=== PATIENT | female | born 1960 | race Caucasian/White ===

== ENCOUNTER 2024-03-07 08:09 | Inpatient (IN) ==
--- NOTE | 2024-03-03 12:05 | Anesthesiology Consultation ---
Date of Service March 03, 2024 Assessment & Plan (1) Encounter for pre-operative examination: Chart Review Chart Review: Acceptable Risk for Surgery and Patient NOT seen in Pre Admission Testing -Pt seen by PCP and Cardio prior to 02/12/24 lumbar procedure and deemed 'low risk' by both providers. Infectious Disease screening: Per PAT nursing assessment on 03/03/24, No known infectious disease contacts in past 10 days or current infectious disease symptoms. No recent travel outside the country. History Surgery Operation Date: 03/07/24 10:05 Proposed Procedures p L5-S1 Revision Decompression and Fusion - Evangelista Whitney DO Height/Weight Height: 5 ft 6 in Weight: 72.575 kg Allergies Allergy/AdvReac Type Severity Reaction Status Date / Time prednisone Allergy Severe extreme Verified 03/03/24 10:32 hyperactivity Medications Home Medications Medication Instructions Recorded Confirmed Last Taken alprazolam 1 mg tablet 1 mg PO TID PRN Anxiety 01/22/24 03/03/24 02/12/24 06:00 baclofen 10 mg tablet 10 mg PO TID PRN Pain 01/22/24 03/03/24 02/11/24 18:00 fenofibrate nanocrystallized 145 145 mg PO PM 01/22/24 03/03/24 Unknown mg tablet ibuprofen 800 mg tablet 800 mg PO Q8H 01/22/24 03/03/24 Unknown pregabalin 200 mg capsule (Lyrica) 200 mg PO BID 01/22/24 03/03/24 02/11/24 18:00 trazodone 100 mg tablet 200 mg PO HS 01/22/24 03/03/24 02/11/24 18:00 venlafaxine 150 mg 150 mg PO QAM 01/22/24 03/03/24 Unknown capsule,extended release 24 hr (Effexor XR) venlafaxine 75 mg capsule,extended 75 mg PO QAM 01/22/24 03/03/24 02/12/24 06:00 release 24 hr (Effexor XR) oxycodone 5 mg tablet 5 mg PO Q6H PRN pain #20 tabs 02/12/24 03/03/24 Unknown tramadol 50 mg tablet 50 mg PO Q6H PRN pain, moderate 02/12/24 03/03/24 Unknown #20 tabs atorvastatin 40 mg tablet (Lipitor) 40 mg PO QPM 03/03/24 03/03/24 Unknown cholecalciferol (vitamin D3) 125 125 mcg PO DAILY 03/03/24 03/03/24 Unknown mcg (5,000 unit) tablet (Vitamin D3) Past Medical History Medical History Anxiety Fibromyalgia Hyperlipidemia LBBB (left bundle branch block) Chronic finding dating back to at least 2020 "Chronic finding, no intervention" per cardio records Muscle spasm Neuropathy RLE Sleep apnea has cpap but is non-compliant Past Family History Family History Mother Colon cancer Father Diabetes Other No family history of adverse response to anesthesia Past Surgical History Surgical History (Updated 03/03/24 @ 12:04 by Anabel Nolasco PA-C) H/O laminectomy (02/12/24) Laminotomy L5-S1 on the right with excision of herniated fragment: GA: Beard#2, MAC#3, ETT#7.0 HiLo Oral, Gr View 3 (atraumatic x 2 attempts) History of breast augmentation History of cardiac cath 2014- no stents History of colonoscopy History of hysterectomy History of laparoscopy Social History Smoking Status: Former smoker Do You Dip or Chew Tobacco: No Smoking End Date: 2012 Hx Alcohol Use: No substance use type: does not use Lab Results Anesthesia Preop Results Results Anesthesia Widget: WBC 3.22 K/ul (4.8-10.8) L 01/28/24 Hgb 11.2 g/dl (12.0-16.0) L 01/28/24 Hct 33.3 % (37.0-47.0) L 01/28/24 Plt 291 K/uL (130-400) 01/28/24 Na 129 mmol/L (136-145) L 01/28/24 K 4.3 mmol/L (3.5-5.1) 01/28/24 Cl 97 mmol/L (98-107) L 01/28/24 CO2 28 mmol/L (21-32) 01/28/24 BUN 10 mg/dl (6-23) 01/28/24 Creat 0.67 mg/dl (0.6-1.2) 01/28/24 Glucose Level 88 mg/dl (70-99(Fasting)) 01/28/24 PT 11.1 Seconds (9.0-12.0) 01/28/24 PTT 25 Seconds (21-31) 01/28/24 INR 1.0 (0.9-1.1) 01/28/24 Urine Color Yellow 01/28/24 Urine Appearance Clear (Clear) 01/28/24 Urine pH 6.0 (4.5-7.5) 01/28/24 Urine Specific [place] 1.010 (1.000-1.030) 01/28/24 Urine Protein Negative (Negative) 01/28/24 Urine Glucose (UA) Negative (Negative) 01/28/24 Urine Ketones Negative (Negative) 01/28/24 Urine Blood Negative (Negative) 01/28/24 Urine Nitrite Negative (Negative) 01/28/24 Urine Bilirubin Negative (Negative) 01/28/24 Urine Urobilinogen Negative (Negative) 01/28/24 Urine Leukocyte Esterase Negative (Negative) 01/28/24 Blood Type A Positive 01/28/24 Antibody Screen NEGATIVE 01/28/24 Testing Laboratory Results 02/04/24: SODIUM: 134 (L) POTASSIUM: 4.0 CHLORIDE: 102 CO2: 22 BUN: 9 CREATININE: 0.82 GLUCOSE: 90 Electrocardiogram Date: 02/01/24 Findings: + NSR @ (84bpm) LBBB Chest X-Ray Date: 01/28/24 Findings: + NAD
[~2024-03-07 08:09] MED LIST: DEXAMETHASONE SOD INJ 4 MG/ML VIAL ONE; GLYCOPYRROLATE 0.2 MG/ML VIAL ONE; LIDOCAINE 2% 2 ML VIAL/AMP(20MG/ML) INFIL ONE; MIDAZOLAM HCL 1 MG/ML 2ML VIAL ONE; ONDANSETRON INJ 2 MG/ML 2 ML VIAL ONE; PROPOFOL IV EMULSION 10 MG/ML 20 ML VIAL IV ONE; ROCURONIUM BROMIDE 10 MG/ML 5 ML VIAL IV ONE; SUGAMMADEX SODIUM 200 MG/2 ML VIAL IV ONE; fentaNYL citrate PF 100 MCG/2 ML VIAL ONE
[2024-03-07] MEDS: GABAPENTIN 600 MG DOSE PO SCH (08:57)
[2024-03-07] MEDS: LR 60ML/HR IV SCH (08:57)
[2024-03-07] MEDS: ACETAMINOPHEN 500 MG TAB PO SCH (08:57)
[2024-03-07] MEDS: CeleBREX 200 MG CAP PO SCH (08:57)
[2024-03-07] MEDS: LR 15ML/HR IV SCH (09:09)
--- NOTE | 2024-03-07 09:51 | History & Physical Bridge Note ---
Date of Service March 07, 2024 History & Physical Bridge Note I have examined the patient, reviewed the History & Physical and in the interval since the performance of the History & Physical I have noted the following changes of clinical significance: no changes noted
--- NOTE | 2024-03-07 09:52 | History & Physical Report ---
Date of Service March 07, 2024 Assessment & Plan (1) Lumbar disc herniation with radiculopathy: Plan: L5-S1 revision decompression and fusion History of Present Illness Chief Complaint: Back and right leg pain Primary Care Provider: ALEX Nicholson This is a 63-year-old female presents with recurrent disc herniation continued right leg pain. Subsequently she is here for revision surgery. Allergies Allergy/AdvReac Type Severity Reaction Status Date / Time prednisone Allergy Severe extreme Verified 03/07/24 08:39 hyperactivity Home Medications Medication Instructions Recorded Confirmed Type alprazolam 1 mg tablet 1 mg PO TID PRN Anxiety 01/22/24 03/07/24 History baclofen 10 mg tablet 10 mg PO TID PRN Pain 01/22/24 03/07/24 History fenofibrate nanocrystallized 145 145 mg PO PM 01/22/24 03/07/24 History mg tablet ibuprofen 800 mg tablet 800 mg PO Q8H 01/22/24 03/07/24 History pregabalin 200 mg capsule (Lyrica) 200 mg PO BID 01/22/24 03/07/24 History trazodone 100 mg tablet 200 mg PO HS 01/22/24 03/07/24 History venlafaxine 150 mg 150 mg PO QAM 01/22/24 03/07/24 History capsule,extended release 24 hr (Effexor XR) venlafaxine 75 mg capsule,extended 75 mg PO QAM 01/22/24 03/07/24 History release 24 hr (Effexor XR) oxycodone 5 mg tablet 5 mg PO Q6H PRN pain #20 tabs 02/12/24 03/07/24 Rx tramadol 50 mg tablet 50 mg PO Q6H PRN pain, moderate 02/12/24 03/07/24 Rx #20 tabs atorvastatin 40 mg tablet (Lipitor) 40 mg PO QPM 03/03/24 03/07/24 History cholecalciferol (vitamin D3) 125 125 mcg PO DAILY 03/03/24 03/07/24 History mcg (5,000 unit) tablet (Vitamin D3) sennosides 8.6 mg-docusate sodium 2 tab PO BID PRN Constipation 03/07/24 03/07/24 History 50 mg tablet Past Med/Surg History Problem List Lumbar disc herniation with radiculopathy Medical History LBBB (left bundle branch block) Chronic finding dating back to at least 2020 "Chronic finding, no intervention" per cardio records Fibromyalgia Neuropathy RLE Sleep apnea has cpap but is non-compliant Hyperlipidemia Muscle spasm Anxiety Surgical History H/O laminectomy (02/12/24) Laminotomy L5-S1 on the right with excision of herniated fragment: GA: Beard#2, MAC#3, ETT#7.0 HiLo Oral, Gr View 3 (atraumatic x 2 attempts) History of hysterectomy History of breast augmentation History of laparoscopy History of colonoscopy History of cardiac cath 2014- no stents Family History Mother Colon cancer Father Diabetes Other No family history of adverse response to anesthesia Social History Smoking Status: Former smoker Tobacco Type: Cigarettes Smoking End Date: 2012; Second Hand Exposure: No; Do You Dip or Chew Tobacco: No; Hx Alcohol Use: No Preferred Language: Barbadian Communication Ability: Effective Acquisition Consultant Required: No Beliefs That Will Affect Care: None Current Living Situation: Alone Feels Safe at Home: Yes Safety Concerns: Feels Safe At This Time Assistive Devices: Cane and CPAP Assistive Devices Comment: pt states does not use cpap machine Physical Exam Physical Exam: Patient is alert and oriented Heart regular rhythm Lungs clear Results & Data Results & Data Vital Signs (Past 12 Hours) Vital Signs Temp Pulse Resp BP Pulse Ox O2 Del Method 03/07/24 08:48 36.8 C 71 16 141/70 H 97 Room Air
[2024-03-07] MEDS ORDERED: PROMETHAZINE HCL 6.25 MG in SODIUM CHLORIDE 0.9% 50 ML IV PRN (10:20)
[2024-03-07] MEDS ORDERED: ePHEDrine sulfate 50 MG/ML AMP IV PRN (10:20)
[2024-03-07] MEDS ORDERED: ATROPINE SULFATE 0.1 MG/ML 10ML SYR IV PRN (10:20)
[2024-03-07] MEDS ORDERED: ONDANSETRON INJ 2 MG/ML 2 ML VIAL IV PRN ×2 (10:20→14:19)
[2024-03-07] MEDS: ceFAZolin 2000MG 2,000 MG/15 ML SYR IV SCH (10:22)
[2024-03-07] MEDS ORDERED: fentaNYL citrate PF 100 MCG/2 ML VIAL ONE (11:18)
[2024-03-07] MEDS: ceFAZolin 330 MG/ML 1 GM VIAL ONE (11:43)
[2024-03-07] MEDS: BUPIVACAINE/EPINEPHRINE 0.25% 1:200,000 30 ML VIAL ONE (11:43)
[2024-03-07] MEDS: FLOSEAL HEMOSTATIC MATRIX 10ML TOP ONE (11:44)
--- NOTE | 2024-03-07 11:54 | Operative Report ---
Post Operative Report Pre & Post Diagnosis Operation Date: 03/07/24 10:05 Pre-Op Diagnosis: Recurrent lumbar disc herniation L5-S1 Post-Op Diagnosis: Same I identified the patient and participated in the time-out.: Yes Procedure Operation Date: 03/07/24 10:05 Actual Procedures #1 revision decompression bilateral medial facetectomies and foraminotomies with excision of herniated fragments of disc at L5-S1. #2 posterior spinal fusion L5-S1. #3 placement posterior instrumentation L5-S1. #4 interbody fusion L5- S1. #5 placement of Spira 13 x 26 mm x 2 at L5-S1. #6 placement locally harvested morselized autograft posterior gutters. #7 placement infuse collagen sponge, with Koros bone graft in the posterior lateral gutters and os design bone graft in the interbody space. #8 application of versa wrap over the exposed dura. Surgeon Evangelista Whitney, Receiving Room Clerk Tracey Arroyo Estimated Blood Loss 100 Findings Consistent with Post-Op Diagnosis Specimens None Indications This is a 63-year-old female presents with above-mentioned diagnosis after failing course of nonoperative care she is here for surgical invention. Description of Procedure Patient was met with identified informed consent obtained. Patient was then taken to the operative suite underwent intubation placed in a prone position on the Masood table atop the Jad frame. All bony promises well-padded eyes inspected to ensure no external pressure placed upon the. This point the lumbar spine was prepped and draped in normal sterile fashion. Sharp dissection with the assistance of Bovie cautery was formed down to and exposing the remaining lamina transverse processes of L5 and the sacral ala bilaterally. From caudal to cephalad fashion revision complete laminectomy of L5 was performed including bilateral medial facetectomies and foraminotomies. This included addressing the fragments of free disc material under the S1 nerve root on the right. Pedicle screws were then placed in the 5 S1 levels bilaterally with assistance of fluoroscopy and the properly sized stuart placed. By way of transforaminal approach on the right discectomy of L5-S1 was performed endplates guarded to subcortical bleeding bone and a 13 x 26 mm spiral cage filled with os design zyme bone graft tapped in position. Then proceeded to the left transforaminal region of L5-S1. Again discectomy performed endplates guided to subcortical main bone and a second 13 x 26 mm Spira cage filled with os design bone graft ta pped in position. The rods then compressed locked into final position bilaterally. The transverse processes of L5 and the sacral ala burred to subcortical bleeding bone. Infuse collagen sponge combined with Koros and local autograft placed in the posterior lateral gutters. 15 round ADDI drain inserted. Versa wrap placed over the exposed dura. The incision was then closed with 1 Vicryl fascia 2-0 Vicryl subcutaneously and 4 Monocryl for final skin closure. Steri-Strips sterile dressing placed. Patient waken taken PACU in stable condition. Please note spinal cord monitoring was utilized without the procedure no changes noted. Barbara Arroyo was present at the entire procedure involved the patient positioning complex portion of the surgery and final skin closure. I attest to the content of the Intraoperative Record and any orders documented therein. Any exceptions are noted below.
--- NOTE | 2024-03-07 11:59 | Fluoroscopy Report ---
FL lumbar spine 2-3V CLINICAL HISTORY: L5-S1 REVISION DECOMP/FUSION COMPARISON STUDY: Lumbar spine fluoroscopic images February 12, 2024. FLUOROSCOPY TIME: 19 seconds. Ka, r: 10.80 mGy FLUOROSCOPIC IMAGES: 2 FINDINGS: Fluoroscopy was provided during the L5-S1 discectomy, decompression and fusion. Hardware is intact. IMPRESSION: Fluoroscopy provided during L5-S1 discectomy, decompression and fusion. ACT 112: Negative or not required by law. Electronically signed by: Espinoza Sibley M.D. 03/07/2024 11:58 AM
[2024-03-07] MEDS: fentaNYL citrate PF 100 MCG/2 ML VIAL IV PRN (12:10)
[2024-03-07] MEDS: HYDROmorphone INJ 2 MG/ML SYR/VIAL IV PRN (12:58)
--- NOTE | 2024-03-07 13:49 | Anesthesiology Progress Note ---
Date of Service March 07, 2024 Anesthesia Post Procedure Vital Signs Vital Signs: Temp Pulse Pulse Resp BP Pulse Ox O2 Del Method 03/07/24 13:45 78 8 L 125/59 L 97 Nasal Cannula 03/07/24 13:35 77 16 121/57 L 97 Nasal Cannula 03/07/24 13:20 74 13 123/69 95 Nasal Cannula 03/07/24 13:10 81 12 133/74 95 Nasal Cannula 03/07/24 13:00 78 12 125/65 97 Nasal Cannula 03/07/24 12:50 75 15 122/63 96 Room Air 03/07/24 12:40 71 16 113/70 93 Room Air 03/07/24 12:30 73 12 125/66 94 Room Air 03/07/24 12:20 68 13 129/60 94 Room Air 03/07/24 12:10 36.3 C L 82 12 122/70 92 Room Air 03/07/24 08:48 36.8 C 71 16 141/70 H 97 Room Air O2 Flow Rate 03/07/24 13:45 2 03/07/24 13:35 2 03/07/24 13:20 2 03/07/24 13:10 2 03/07/24 13:00 2 03/07/24 12:50 03/07/24 12:40 03/07/24 12:30 03/07/24 12:20 03/07/24 12:10 03/07/24 08:48 Pain Intensity Right Back: Pain Intensity: 6 Transfer of Care Handoff Completed per policy Notes Mental Status: alert / awake / arousable and participated in evaluation Patient Amnestic to Procedure: Yes Nausea / Vomiting: adequately controlled Pain: adequately controlled Airway Patency, RR, SpO2: stable & adequate BP & HR: stable & adequate Hydration State: stable & adequate Anesthetic Complications: no major complications apparent
[2024-03-07] MEDS ORDERED: hydrOXYzine HCl 25 MG TAB PO PRN (14:19)
[2024-03-07] MEDS ORDERED: PROMETHAZINE 12.5 MG/50.5 ML BAG IV PRN (14:19)
[2024-03-07] MEDS ORDERED: ACETAMINOPHEN 500 MG TAB PO PRN (14:19)
[2024-03-07] MEDS ORDERED: ACETAMINOPHEN 1,000 MG/100 ML VIAL IV PRN (14:19)
[2024-03-07] MEDS ORDERED: NALOXONE HCL 0.4 MG/1 ML VIAL/CARP IV PRN (14:19)
[2024-03-07] MEDS ORDERED: SOD PHOSPHATE/SOD BIPHOSPHATE ENEMA 132 ML BTL PR PRN (14:19)
[2024-03-07] MEDS ORDERED: ONDANSETRON 4 MG OD TAB PO PRN (14:19)
[2024-03-07] MEDS ORDERED: DO NOT ADMINISTER PNEUMOCOCCAL VACCINE PRN (14:19)
[2024-03-07] MEDS ORDERED: ALUMINUM/MAGNESIUM SUSP 30 ML UDC PO PRN (14:19)
[2024-03-07] MEDS ORDERED: METOCLOPRAMIDE HCL INJ 5 MG/ML 2 ML VIAL IV PRN (14:19)
[2024-03-07] MEDS ORDERED: LORazepam 0.5 MG TAB PO PRN (14:19)
[2024-03-07] MEDS ORDERED: DO NOT ADMINISTER FLU VACCINE PRN (14:19)
[2024-03-07] MEDS ORDERED: FAMOTIDINE 20 MG TAB PO PRN (14:19)
[2024-03-07] MEDS ORDERED: LORazepam 2 MG/1 ML VIAL IV PRN (14:19)
[2024-03-07] MEDS ORDERED: traMADol HCL 50 MG TABLET PO PRN (14:19)
[2024-03-07] MEDS ORDERED: diphenhydrAMINE Capsule 25 MG CAP PO PRN (14:19)
[2024-03-07] MEDS ORDERED: bisacodyL 10 MG SUPP PR PRN (14:19)
[2024-03-07] MEDS ORDERED: MAGNESIUM HYDROXIDE SUSP 30 ML UDC PO PRN (14:19)
--- NOTE | 2024-03-07 14:33 | Hospitalist Consultation ---
Date of Consultation March 07, 2024 Assessment & Plan (1) Lumbar disc herniation with radiculopathy: (2) S/P lumbar spine operation: Plan Yasemin Cisneros is a 63y/o F with PMHx significant for fibromyalgia, COLE intolerant to CPAP, HLD, anxiety, neuropathy and LBBB [facility] after undergoing L5-S1 decompression and fusion revision performed by Dr. Whitney on 03/07/24. Lumbar Disc Herniation with Radiculopathy S/P Lumbar Spine Operation: POD #0 s/p L5-S1 decompression and fusion revision with Dr. Whitney. EBL: 100mL & Pre-Op Hgb: 11.2 [01/28/24] Per ortho for pain control, wound care, anticoagulation and activities. Continue incentive spirometry, PT/OT when appropriate as per ortho team. Monitor H/H for acute blood loss anemia and transfuse blood products PRN. Other Chronic Medical Conditions: HLD, anxiety, neuropathy --> Can continue home meds for these specific conditions. DVT Prophylaxis: SCDs/TEDs per primary care team. Code Status: FULL CODE PCP: ALEX Pizarro Disposition: Admitted in Med/Surg - discharge planning as per primary service. Thank you for this consultation. We will follow the patient with you during their hospital stay. You can reach a [facility] of [facility] via [employer]. Patient seen in collaboration with Dr. Gonzalez. Please see addendum. I spent a total of 40 minutes coordinating, documenting, and providing care for this patient excluding time spent in the performance of separately billed services. This included personally reviewing all current laboratories and imaging studies, medical reconciliation, outpatient chart review and discussion with specialists. This chart was completed in part utilizing Speech Voice Recognition Software. Grammatical errors, random word insertions, pronoun errors, and incomplete sentences are an occasional consequence of this system due to software limitations, ambient noise, and hardware issues. Any formal questions or concerns about the content, text, or information contained within the body of this dictation should be directly addressed to the provider for clarification. Supervising Physician Co-Signing Physician Notes Pt seen and examined at the bedside with Mikey Erwin PA-C. A total of 30 minutes spent in care coordination for this patient. I agree with the TYREE assessment and plan. Thank you Dr. Whitney for the consult History of Present Illness Reason for Consultation: Post-Operative Medical Management Requesting Physician: Evangelista Whitney DO Attending Physician: Evangelista Whitney DO History of Present Illness Yasemin Cisneros is a 63y/o F with PMHx significant for fibromyalgia, COLE intolerant to CPAP, HLD, anxiety and LBBB who [facility] medical management after undergoing L5-S1 decompression and fusion revision performed by Dr. Whitney on 03/07/24. History obtained from patient and associated chart review. Patient seen at bedside with Dr. Gonzalez. Patient reports some tingling/burning sensation at the surgical site. She is requesting an ice pack to place on this area. Denies any SOB or chest pain. She has not yet been out of bed post-operatively. No Hyman catheter in place. ADDI drain x 1 is intact and draining serosanguineous output. Mentions she feels comfortable otherwise. She is saturating well in the upper 90s on 2L O2 via NC. Has no other complaints or concerns at this time. She does not smoke nor drink alcohol. Allergies Allergy/AdvReac Type Severity Reaction Status Date / Time prednisone Allergy Severe extreme Verified 03/07/24 08:39 hyperactivity Home Medications Medication Instructions Recorded Confirmed Type alprazolam 1 mg tablet 1 mg PO TID PRN Anxiety 01/22/24 03/07/24 History baclofen 10 mg tablet 10 mg PO TID PRN Pain 01/22/24 03/07/24 History fenofibrate nanocrystallized 145 145 mg PO PM 01/22/24 03/07/24 History mg tablet ibuprofen 800 mg tablet 800 mg PO Q8H 01/22/24 03/07/24 History pregabalin 200 mg capsule (Lyrica) 200 mg PO BID 01/22/24 03/07/24 History trazodone 100 mg tablet 200 mg PO HS 01/22/24 03/07/24 History venlafaxine 150 mg 150 mg PO QAM 01/22/24 03/07/24 History capsule,extended release 24 hr (Effexor XR) venlafaxine 75 mg capsule,extended 75 mg PO QAM 01/22/24 03/07/24 History release 24 hr (Effexor XR) oxycodone 5 mg tablet 5 mg PO Q6H PRN pain #20 tabs 02/12/24 03/07/24 Rx tramadol 50 mg tablet 50 mg PO Q6H PRN pain, moderate 02/12/24 03/07/24 Rx #20 tabs atorvastatin 40 mg tablet (Lipitor) 40 mg PO QPM 03/03/24 03/07/24 History cholecalciferol (vitamin D3) 125 125 mcg PO DAILY 03/03/24 03/07/24 History mcg (5,000 unit) tablet (Vitamin D3) oxycodone 5 mg tablet 5 mg PO Q6H PRN pain #30 tabs 03/07/24 Rx sennosides 8.6 mg-docusate sodium 2 tab PO BID PRN Constipation 03/07/24 03/07/24 History 50 mg tablet tramadol 50 mg tablet 50 mg PO Q6H PRN pain, moderate 03/07/24 Rx #30 tabs Patient History Medical History LBBB (left bundle branch block) Chronic finding dating back to at least 2020 "Chronic finding, no intervention" per cardio records Fibromyalgia Neuropathy RLE Sleep apnea has cpap but is non-compliant Hyperlipidemia Muscle spasm Anxiety Surgical History H/O laminectomy (02/12/24) Laminotomy L5-S1 on the right with excision of herniated fragment: GA: Beard#2, MAC#3, ETT#7.0 HiLo Oral, Gr View 3 (atraumatic x 2 attempts) History of hysterectomy History of breast augmentation History of laparoscopy History of colonoscopy History of cardiac cath 2014- no stents Family History Mother Colon cancer Father Diabetes Other No family history of adverse response to anesthesia Social History Smoking Status: Former smoker Tobacco Type: Cigarettes Smoking End Date: 2012; Second Hand Exposure: No; Do You Dip or Chew Tobacco: No; Hx Alcohol Use: No Preferred Language: [place]orese Communication Ability: Effective Traffic Line Painter Required: No Beliefs That Will Affect Care: None Current Living Situation: Alone Feels Safe at Home: Yes Safety Concerns: Feels Safe At This Time Assistive Devices: Cane and CPAP Assistive Devices Comment: pt states does not use cpap machine Review of Systems Review of Systems: At least ten systems reviewed and negative,except as noted in the HPI. Physical Exam Physical Exam: Please refer to Dr. Gonzalez's addendum for physical examination findings. Constitutional: General- adult female seen resting in bed. Just up from the PACU. Having some incisional pain, O2 in place Head- atraumatic Eyes- PERRL, EOMI, anicteric ENT- oropharynx clear Neck- no JVD, Lungs- clear to auscultation and percussion Heart- regular rhythm; no murmur, no gallop, no rub appreciated Abdomen- normal bowel sounds, soft, nontender, Extremities- no pretibial edema, no calf tenderness; peripheral pulses intact Neuro- alert, oriented x 3; PERRL, EOMI; no facial palsy; no dysarthria; good sensation in toes Skin- warm & dry ADDI drain intact Results & Data Results & Data Vital Signs (Past 12 Hours) Vital Signs Temp Pulse Pulse Resp BP Pulse Ox O2 Del Method 03/07/24 13:55 78 12 123/62 98 Nasal Cannula 03/07/24 13:45 78 8 L 125/59 L 97 Nasal Cannula 03/07/24 13:35 77 16 121/57 L 97 Nasal Cannula 03/07/24 13:20 74 13 123/69 95 Nasal Cannula 03/07/24 13:10 81 12 133/74 95 Nasal Cannula 03/07/24 13:00 78 12 125/65 97 Nasal Cannula 03/07/24 12:50 75 15 122/63 96 Room Air 03/07/24 12:40 71 16 113/70 93 Room Air 03/07/24 12:30 73 12 125/66 94 Room Air 03/07/24 12:20 68 13 129/60 94 Room Air 03/07/24 12:10 36.3 C L 82 12 122/70 92 Room Air 03/07/24 08:48 36.8 C 71 16 141/70 H 97 Room Air O2 Flow Rate 03/07/24 13:55 2 03/07/24 13:45 2 03/07/24 13:35 2 03/07/24 13:20 2 03/07/24 13:10 2 03/07/24 13:00 2 03/07/24 12:50 03/07/24 12:40 03/07/24 12:30 03/07/24 12:20 03/07/24 12:10 03/07/24 08:48 Diagnostic Findings Lumbar Spine X-Ray 03/07/24 00:00 FL lumbar spine 2-3V CLINICAL HISTORY: L5-S1 REVISION DECOMP/FUSION COMPARISON STUDY: Lumbar spine fluoroscopic images February 12, 2024. FLUOROSCOPY TIME: 19 seconds. Ka, r: 10.80 mGy FLUOROSCOPIC IMAGES: 2 FINDINGS: Fluoroscopy was provided during the L5-S1 discectomy, decompression and fusion. Hardware is intact. IMPRESSION: Fluoroscopy provided during L5-S1 discectomy, decompression and fusion. ACT 112: Negative or not required by law. Electronically signed by: Espinoza Sibley M.D. 03/07/2024 11:58 AM Medications Administered Celecoxib (Celebrex 200 Mg Cap) 200 mg PO PREOP ARIN Stop: 03/07/24 18:00 Last Admin: 03/07/24 08:57 Dose: 200 mg Documented By: ALIZA Gabapentin (Gabapentin 600 Mg Dose) 600 mg PO PREOP ARIN Stop: 03/07/24 18:00 Last Admin: 03/07/24 08:57 Dose: 600 mg Documented By: ALIZA Lactated Ringer's (Lr) 1,000 mls @ 60 mls/hr IV .[id number] ARIN Stop: 03/07/24 22:39 Last Admin: 03/07/24 08:57 Dose: Not Given Documented By: ALIZA Cefazolin Sodium (Ancef 2000mg) 2,000 mg in 15 mls @ 3.75 mls/min IV PREOP ARIN; Protocol Stop: 03/07/24 18:00 Last Admin: 03/07/24 10:22 Dose: 3.75 mls/min Documented By: [id number] Lactated Ringer's (Lr) 1,000 mls @ 15 mls/hr IV .Q24H ARIN Stop: 03/08/24 05:59 Last Infusion: 03/07/24 10:20 Dose: Infused Documented By: Admin: 03/07/24 09:09 Dose: 15 mls/hr Documented By: ALIZA Lactated Ringer's (Lr) 1,000 mls @ 100 mls/hr IV .Q10H ARIN Stop: 04/06/24 14:18 Last Admin: 03/07/24 14:44 Dose: 100 mls/hr Documented By: ELISABET Oxycodone HCl (Oxycodone Hcl Ir 5 Mg Tab (Immediate Release)) 5 - 10 mg PO Q4H PRN PRN Reason: Pain & Pre PT Stop: 03/21/24 14:18 Last Admin: 03/07/24 14:53 Dose: 10 mg Documented By: ELISABET Discontinued Medications Acetaminophen (Acetaminophen 500 Mg Tab) 1,000 mg PO PREOP ARIN Stop: 03/07/24 18:00 Last Admin: 03/07/24 08:57 Dose: 1,000 mg Documented By: ALIZA Bupivacaine HCl/Epinephrine Bitart (Bupivacaine/Epinephrine 0.25% 1:200,000 30 Ml Vial) Confirm Administered Dose 30 ml .ROUTE .STK-MED ONE Stop: 03/07/24 10:09 Last Admin: 03/07/24 11:43 Dose: 15 ml Documented By: MICKIE Cefazolin Sodium (Cefazolin 330 Mg/Ml 1 Gm Vial) Confirm Administered Dose 990 mg .ROUTE .STK-MED ONE Stop: 03/07/24 10:09 Last Admin: 03/07/24 11:43 Dose: 990 mg Documented By: MICKIE Fentanyl Citrate (Fentanyl Citrate Pf 100 Mcg/2 Ml Vial) 50 mcg IV Q5M PRN PRN Reason: PACU Use Only-Pain Stop: 03/07/24 18:20 Last Admin: 03/07/24 12:53 Dose: 50 mcg Documented By: Admin: 03/07/24 12:35 Dose: 50 mcg Documented By: Admin: 03/07/24 12:15 Dose: 50 mcg Documented By: Admin: 03/07/24 12:10 Dose: 50 mcg Documented By: DOMINICK Hydromorphone HCl (Hydromorphone Inj 2 Mg/Ml Syr/Vial) 0.5 mg IV Q5M PRN PRN Reason: PACU Use Only-Pain Stop: 03/07/24 18:20 Last Admin: 03/07/24 13:35 Dose: 0.5 mg Documented By: Admin: 03/07/24 13:08 Dose: 0.5 mg Documented By: Admin: 03/07/24 13:03 Dose: 0.5 mg Documented By: Admin: 03/07/24 12:58 Dose: 0.5 mg Documented By: CLAYTONW Miscellaneous ( Floseal Hemostatic Matrix 10ml) 10 ml TOP ONCE ONE Stop: 03/07/24 11:45 Last Admin: 03/07/24 11:44 Dose: 14 ml Documented By: MICKIE
[2024-03-07] MEDS: LACTATED RINGER'S 1,000 ML IV SCH (14:44)
[2024-03-07] MEDS: oxyCODONE HCL IR 5 MG TAB (IMMEDIATE RELEASE) PO PRN (14:53)
[2024-03-07] MEDS: ALPRAZolam 0.5 MG TABLET PO PRN (16:50)
[2024-03-07] MEDS: ceFAZolin 1000MG 1,000 MG/7.5 ML SYR IV SCH (17:08)
[2024-03-07] MEDS: traZODone HCL 100 MG TAB PO SCH (18:34)
[2024-03-07] MEDS: PREGABALIN 100 MG CAP PO SCH (20:23)
[2024-03-07] MEDS: FENOFIBRATE NANOCRYSTALLIZED 145 MG TABLET PO SCH (20:23)
[2024-03-07] MEDS: ATORVASTATIN 40 MG TAB PO SCH (20:23)
[2024-03-07] MEDS: DOCUSATE SODIUM/SENNA 50/8.6MG TAB PO SCH (20:23)
[2024-03-08] MEDS: HYDROmorphone INJ 0.5 MG/0.5 ML SYR IV PRN (05:01)
[2024-03-08] MEDS: POLYETHYLENE (MIRALAX) 17 GM PACK PO SCH (06:28)
[2024-03-08 06:37] LABS: Basophils # (auto) 0.01 K/uL (0.00-0.20); Basophils % (auto) 0.2 %; Eosinophils # (auto) 0.32 K/uL (0.00-0.50); Eosinophils % (auto) 6.6 %; Hematocrit (blood only) 26.7 % (37.0-47.0); Hemoglobin 8.8 g/dl (12.0-16.0); Immature Granulocytes # (auto) 0.02 K/uL (0.01-0.20); Immature Granulocytes % (auto) 0.4 %; Lymphocytes # (auto) 1.01 K/uL (1.20-3.40); Lymphocytes % (auto) 20.9 %; Mean Corpuscular Volume 91.1 fL (80.0-100.0); Mean Platelet Volume 10.3 fL (9.4-12.4); Monocytes # (auto) 0.53 K/uL (0.11-0.59); Neutrophils # (auto) 2.94 K/uL (1.40-6.50); Neutrophils % (auto) 60.9 %; Platelet Count 171 K/uL (130-400); RDW Coefficient of Variation 12.3 % (11.5-14.5); RDW Standard Deviation 41.1 fL (36.4-46.3); Red Blood Count 2.93 M/uL (4.20-5.40); White Blood Count 4.83 K/ul (4.8-10.8)
[2024-03-08 07:05] LABS: BUN Creatinine Ratio 11.5 (10-20); Calcium 8.9 mg/dl (8.6-10.3); Creatinine Clr Calc Pharmacy 102.3 ml/min; Magnesium 1.8 mg/dl (1.7-2.4); Phosphorus 3.7 mg/dl (2.5-4.9); Potassium 3.9 mmol/L (3.5-5.1)
[2024-03-08] MEDS: VENLAFAXINE HCL XR 150 MG CAPXR PO SCH (07:49)
[2024-03-08] MEDS: CHOLECALCIFEROL 125 MCG (5,000 UNITS) TAB PO SCH (07:49)
[2024-03-08] MEDS: VENLAFAXINE HCL XR 75 MG CAPXR PO SCH (07:50)
[2024-03-08] MEDS: dexAMETHasone 6 MG in SYRINGE 0 ML IV SCH (09:57)
--- NOTE | 2024-03-08 10:21 | Orthopedic Progress Note ---
Date of Service March 08, 2024 Assessment & Plan (1) Lumbar disc herniation with radiculopathy: Plan: Plan at this time we will initiate physical therapy monitor her ADDI output hopefully discharge home in the next few days. Admission and Anticipated Discharge Date Admission Date: March 07, 2024 Subjective Patient's back pain is controlled. Leg pain markedly improved. Physical Exam Physical Exam: On exam the patient is currently in bed. She neurologically intact. Results & Data Vital Signs (Past 12 Hours) Vital Signs Temp Pulse Resp BP Pulse Ox O2 Del Method O2 Flow Rate 03/08/24 07:48 36.7 C 73 16 108/75 97 Room Air 03/08/24 03:00 36.4 C L 64 18 102/61 93 Room Air 03/07/24 23:00 36.4 C L 62 16 92/53 L 94 Nasal Cannula 2
[2024-03-08] MEDS: HYDROmorphone INJ 1 MG/ML SYRINGE IV PRN (13:44)
--- NOTE | 2024-03-08 14:08 | Hospitalist Progress Note ---
Date of Service March 08, 2024 Assessment & Plan (1) Lumbar disc herniation with radiculopathy: (2) S/P lumbar spine operation: (3) Acute blood loss as cause of postoperative anemia: Plan Yasemin Cisneros is a 63y/o F with PMHx significant for fibromyalgia, COLE intolerant to CPAP, HLD, anxiety, neuropathy and LBBB who was referred to our [facility] for post-operative medical management after undergoing L5-S1 decompression and fusion revision performed by Dr. Whitney on 03/07/24. Lumbar Disc Herniation with Radiculopathy S/P Lumbar Spine Operation: POD #1 s/p L5-S1 decompression and fusion revision with Dr. Whitney. EBL: 100mL & Pre-Op Hgb: 11.2 [01/28/24] Per ortho for pain control, wound care, anticoagulation and activities. Continue incentive spirometry, PT/OT when appropriate as per ortho team. Monitor H/H for acute blood loss anemia and transfuse blood products PRN. Acute blood loss anemia as result of post operative anemia likely dilutional components as well pre op hgb 11.2, today 8.8 continue to monitor FAROOQ outpt, hgb Other Chronic Medical Conditions: HLD, anxiety, neuropathy --> Can continue home meds for these specific conditions. DVT Prophylaxis: SCDs/TEDs per primary care team. Code Status: FULL CODE PCP: ALEX Pizarro Disposition: Admitted in Med/Surg - discharge planning as per primary service. Thank you for this consultation. We will follow the patient with you during their hospital stay. You can reach a member of the [facility] 29/12 via [employer]. I spent a total of 41 minutes coordinating, documenting, and providing care for this patient excluding time spent in the performance of separately billed services. This included personally reviewing all current laboratories and imagin g studies, medical reconciliation, outpatient chart review and discussion with specialists. This chart was completed in part utilizing Speech Voice Recognition Software. Grammatical errors, random word insertions, pronoun errors, and incomplete sentences are an occasional consequence of this system due to software limitations, ambient noise, and hardware issues. Any formal questions or concerns about the content, text, or information contained within the body of this dictation should be directly addressed to the provider for clarification. Admission and Anticipated Discharge Date Admission Date: March 07, 2024 Supervising Physician Co-Signing Physician Notes I have seen and discussed the case with the collaborating advanced practitioner. I agree with the above PN. I have reviewed and confirmed the patients medical history, the findings on physical examination, and the patients diagnosis and treatment plan with Sera VARGAS and agree with the information documented. Hospitalist Team consulted for post-operative medical management after undergoing L5-S1 decompression and fusion revision performed by Dr. Whitney on 03/07/24. Agree with plan above I spent a total of 10 minutes coordinating, documenting, and providing care for this patient excluding time spent in the performance of separately billed services. All of the aforementioned completed outside of collaborating with the assigned advanced practitioner for a full treatment plan. I have reviewed the advanced practitioner's documentation, and I agree with, and take responsibility for the plan of care Subjective Pt reports being tired and they she hasn't slept in 2 nights. She moved rooms once already due to a noisy roommate. She has a lot of incisional back pain, but denies any radicular sx. She denies f/c/s, chest pain, sob, n/v/d. Review of Systems Review of Systems: All systems reviewed & are unremarkable except as noted in HPI & below Physical Exam Physical Exam: Gen: WD/WN, F, NAD, A&O x3 HEENT: Normocephalic, atraumatic, conjunctivae moist, sclerae anicteric, mucous membranes moist. Lung: Clear to Auscultation bilaterally, no wheezes/rales/rhonchi Heart: Regular rate, regular rhythm, no murmurs, rubs, or gallops Abdomen: Soft, NT, ND +BS x 4 Extremities: No edema, dressing CDI, farooq drain with serosang drainage Skin: Warm, no rash, negative turgor. Results & Data Results & Data Vital Signs (Past 12 Hours) Vital Signs Temp Pulse Resp BP Pulse Ox O2 Del Method 03/08/24 11:44 36.3 C L 74 12 107/66 94 Room Air 03/08/24 07:48 36.7 C 73 16 108/75 97 Room Air 03/08/24 03:00 36.4 C L 64 18 102/61 93 Room Air Laboratory Results Short CBC 03/08/24 Range/Units 06:07 WBC 4.83 (4.8-10.8) K/ul Hgb 8.8 L (12.0-16.0) g/dl Hct 26.7 L (37.0-47.0) % Plt Count 171 (130-400) K/uL [facility] 03/08/24 06:07 Sodium 136 Potassium 3.9 Chloride 102 Carbon Dioxide 30 BUN 6 Creatinine 0.52 L Glucose 88 Calcium 8.9 Medications Administered Current Inpatient Medications Acetaminophen (Acetaminophen 500 Mg Tab) 1,000 mg PO Q8H PRN PRN Reason: MILD Pain Scale 1,2,3 & Pre PT Stop: 04/06/24 14:18 Al Hydrox/Mg Hydrox/Simethicone (Aluminum/Magnesium Susp 30 Ml Udc) 30 ml PO Q6H PRN PRN Reason: Dyspepsia Stop: 04/06/24 14:18 Alprazolam (Alprazolam 0.5 Mg Tablet) 1 mg PO TID PRN PRN Reason: Anxiety Stop: 04/06/24 14:18 Last Admin: 03/08/24 07:49 Dose: 1 mg Atorvastatin Calcium (Atorvastatin 40 Mg Tab) 40 mg PO QPM ARIN Stop: 04/06/24 20:59 Last Admin: 03/07/24 20:23 Dose: 40 mg Bisacodyl (Bisacodyl 10 Mg Supp) 10 mg TX DAILY PRN PRN Reason: Constipation Stop: 04/06/24 14:18 Diphenhydramine HCl (Diphenhydramine Capsule 25 Mg Cap) 25 mg PO Q6H PRN PRN Reason: Allergic Rhinitis/Insomnia Stop: 04/06/24 14:18 Famotidine (Famotidine 20 Mg Tab) 20 mg PO Q12H PRN PRN Reason: Dyspepsia Stop: 04/06/24 14:18 Fenofibrate (Fenofibrate Nanocrystallized 145 Mg Tablet) 145 mg PO PM ARIN Stop: 04/06/24 20:59 Last Admin: 03/07/24 20:23 Dose: 145 mg Hydromorphone HCl (Hydromorphone Inj 0.5 Mg/0.5 Ml Syr) 0.5 mg IV Q3H PRN PRN Reason: MODERATE Pain (Scale 4,5,6) & Pre PT Stop: 03/21/24 14:18 Last Admin: 03/08/24 05:01 Dose: 0.5 mg Hydromorphone HCl (Hydromorphone Inj 1 Mg/Ml Syringe) 1 mg IV Q3H PRN PRN Reason: SEVERE Pain (Scale 7,8,9,10) Stop: 03/21/24 14:18 Last Admin: 03/08/24 13:44 Dose: 1 mg Hydroxyzine HCl (Hydroxyzine Hcl 25 Mg Tab) 25 mg PO Q8H PRN PRN Reason: Anxiety Stop: 04/06/24 14:18 Acetaminophen (Ofirmev) 1,000 mg in 100 mls @ 400 mls/hr IV Q8H PRN PRN Reason: Pain Rating 1-3 & Pre PT Stop: 03/08/24 14:20 Promethazine HCl (Phenergan) 12.5 mg in 50.5 mls @ 202 mls/hr IV Q6H PRN PRN Reason: Nausea And Vomiting Stop: 04/06/24 14:18 Influenza Virus Vaccine Quadrival (Do Not Administer Flu Vaccine) 1 each N/A PRN PRN PRN Reason: Notification Stop: 04/06/24 14:18 Lorazepam (Lorazepam 2 Mg/1 Ml Vial) 0.5 mg IV Q8H PRN PRN Reason: Sedation/Anxiety Stop: 04/06/24 14:18 Magnesium Hydroxide (Magnesium Hydroxide Susp 30 Ml Udc) 30 ml PO Q24H PRN PRN Reason: Constipation Stop: 04/06/24 14:18 Metoclopramide HCl (Metoclopramide Hcl Inj 5 Mg/Ml 2 Ml Vial) 10 mg IV Q6H PRN PRN Reason: Nausea &/or Vomiting Stop: 04/06/24 14:18 Naloxone HCl (Naloxone Hcl 0.4 Mg/1 Ml Vial/Carp) 0.1 mg IV Q5M PRN PRN Reason: Oversedation/Resp depression Stop: 04/06/24 14:18 Ondansetron HCl (Ondansetron Inj 2 Mg/Ml 2 Ml Vial) 4 mg IV Q6H PRN PRN Reason: Nausea &/or Vomiting Stop: 04/06/24 14:18 Ondansetron HCl (Ondansetron 4 Mg Od Tab) 4 mg PO Q6H PRN PRN Reason: Nausea Stop: 04/06/24 14:18 Oxycodone HCl (Oxycodone Hcl Ir 5 Mg Tab (Immediate Release)) 5 - 10 mg PO Q4H PRN PRN Reason: Pain & Pre PT Stop: 03/21/24 14:18 Last Admin: 03/08/24 11:13 Dose: 10 mg Pneumococcal Polyvalent Vaccine (Do Not Administer Pneumococcal Vaccine) 1 each N/A PRN PRN PRN Reason: Notification Stop: 04/06/24 14:18 Polyethylene Glycol (Polyethylene (Miralax) 17 Gm Pack) 17 gm PO Q6 ARIN Stop: 04/07/24 05:59 Last Admin: 03/08/24 13:44 Dose: 17 gm Pregabalin (Pregabalin 100 Mg Cap) 200 mg PO BID ARIN Stop: 04/06/24 20:59 Last Admin: 03/08/24 07:48 Dose: 200 mg Senna/Docusate Sodium (Docusate Sodium/Senna 50/8.6mg Tab) 2 tab PO BID PRN PRN Reason: Constipation Stop: 04/06/24 14:18 Senna/Docusate Sodium (Docusate Sodium/Senna 50/8.6mg Tab) 2 tab PO HS ARIN Stop: 04/06/24 20:59 Last Admin: 03/07/24 20:23 Dose: 2 tab Sodium Biphosphate/Sodium Phosphate (Sod Phosphate/Sod Biphosphate Enema 132 Ml Btl) 132 ml TX ONE PRN PRN Reason: Constipation Stop: 04/06/24 14:18 Tramadol HCl (Tramadol Hcl 50 Mg Tablet) 50 - 100 mg PO Q4H PRN PRN Reason: Moderate-Severe pain & Pre PT Stop: 04/06/24 14:18 Trazodone HCl (Trazodone Hcl 100 Mg Tab) 200 mg PO HS ARIN Stop: 04/06/24 20:59 Last Admin: 03/07/24 18:34 Dose: 200 mg Venlafaxine HCl (Venlafaxine Hcl Xr 75 Mg Capxr) 75 mg PO QAM ARIN Stop: 04/07/24 08:59 Last Admin: 03/08/24 07:50 Dose: 75 mg Venlafaxine HCl (Venlafaxine Hcl Xr 150 Mg Capxr) 150 mg PO QAM ARIN Stop: 04/07/24 08:59 Last Admin: 10/01/24 07:49 Dose: 150 mg Vitamin D (Cholecalciferol 125 Mcg (5,000 Units) Tab) 125 mcg PO DAILY ARIN Stop: 04/07/24 08:59 Last Admin: 03/08/24 07:49 Dose: 125 mcg
[2024-03-08] MEDS ORDERED: COUGH DROP (SUGAR FREE) LOZ 24 LOZ/1 BOX BUCCAL PRN (17:54)
[2024-03-09] MEDS: DOCUSATE SODIUM/SENNA 50/8.6MG TAB PO PRN (05:40)
[2024-03-09 07:37] LABS: Hematocrit (blood only) 27.4 % (37.0-47.0); Hemoglobin 9.1 g/dl (12.0-16.0); Mean Corpuscular Hemoglobin 29.9 pg (25.0-34.0); Mean Corpuscular Hgb Conc 33.2 g/dL (32.0-36.0); Mean Corpuscular Volume 90.1 fL (80.0-100.0); Mean Platelet Volume 10.8 fL (9.4-12.4); Platelet Count 183 K/uL (130-400); RDW Coefficient of Variation 12.4 % (11.5-14.5); RDW Standard Deviation 40.5 fL (36.4-46.3); Red Blood Count 3.04 M/uL (4.20-5.40); White Blood Count 3.79 K/ul (4.8-10.8)
[2024-03-09] MEDS: FERROUS SULFATE 325 MG TAB PO SCH (08:31)
--- NOTE | 2024-03-09 10:55 | Hospitalist Progress Note ---
Date of Service March 09, 2024 Assessment & Plan (1) Lumbar disc herniation with radiculopathy: (2) S/P lumbar spine operation: (3) Acute blood loss as cause of postoperative anemia: Plan Yasemin Cisneros is a 63y/o F with PMHx significant for fibromyalgia, COLE intolerant to CPAP, HLD, anxiety, neuropathy and LBBB who was referred to our [facility] Hospitalist Team for post-operative medical management after undergoing L5-S1 decompression and fusion revision performed by Dr. Whitney on 03/07/24. Lumbar Disc Herniation with Radiculopathy S/P Lumbar Spine Operation: POD #2 s/p L5-S1 decompression and fusion revision with Dr. Whitney. EBL: 100mL & Pre-Op Hgb: 11.2 [01/28/24] Per ortho for pain control, wound care, anticoagulation and activities. Continue incentive spirometry, PT/OT when appropriate as per ortho team. Monitor H/H for acute blood loss anemia and transfuse blood products PRN. Acute blood loss anemia as result of post operative anemia likely dilutional components as well pre op hgb 11.2, today 9.1 continue to monitor FAROOQ outpt, hgb Other Chronic Medical Conditions: HLD, anxiety, neuropathy --> Can continue home meds for these specific conditions. DVT Prophylaxis: SCDs/TEDs per primary care team. Code Status: FULL CODE PCP: ALEX Pizarro Disposition: Admitted in Med/Surg - discharge planning as per primary service. Thank you for this consultation. We will follow the patient with you during their hospital stay. You can reach a member of the [facility] Hospitalist Team 29/12 via [employer]. I spent a total of 38 minutes coordinating, documenting, and providing care for this patient excluding time spent in the performance of separately billed services. This included personally reviewing all current laboratories and imagin g studies, medical reconciliation, outpatient chart review and discussion with specialists. This chart was completed in part utilizing Speech Voice Recognition Software. Grammatical errors, random word insertions, pronoun errors, and incomplete sentences are an occasional consequence of this system due to software limitations, ambient noise, and hardware issues. Any formal questions or concerns about the content, text, or information contained within the body of this dictation should be directly addressed to the provider for clarification. Admission and Anticipated Discharge Date Admission Date: March 07, 2024 Supervising Physician Co-Signing Physician Notes Pt is s/p L5-S1 decompression and fusion revision with Dr. Whitney. Stable per d/w PATayler. Pt not seen personally. Subjective NAEO. She did get moved to a private room which she was happy about. She slept 5 hrs last night. She is anxious about going home and does not think she can go home w/o a hospital bed, potty chair. She is having significant back pain. Denies radicular sx. No BM yet but passing gas. Review of Systems Review of Systems: All systems reviewed & are unremarkable except as noted in HPI & below Physical Exam Physical Exam: Gen: WD/WN, F, NAD, A&O x3 HEENT: Normocephalic, atraumatic, conjunctivae moist, sclerae anicteric, mucous membranes moist. Lung: Clear to Auscultation bilaterally, no wheezes/rales/rhonchi Heart: Regular rate, regular rhythm, no murmurs, rubs, or gallops Abdomen: Soft, NT, ND +BS x 4 Extremities: No edema, dressing CDI, farooq drain with serosang drainage Skin: Warm, no rash, negative turgor. Results & Data Results & Data Vital Signs (Past 12 Hours) Vital Signs Temp Pulse Resp BP Pulse Ox O2 Del Method 03/09/24 07:47 36.8 C 70 18 115/73 94 Room Air Laboratory Results Short CBC 03/09/24 Range/Units 07:17 WBC 3.79 L (4.8-10.8) K/ul Hgb 9.1 L (12.0-16.0) g/dl Hct 27.4 L (37.0-47.0) % Plt Count 183 (130-400) K/uL Medications Administered Current Inpatient Medications Acetaminophen (Acetaminophen 500 Mg Tab) 1,000 mg PO Q8H PRN PRN Reason: MILD Pain Scale 1,2,3 & Pre PT Stop: 04/06/24 14:18 Al Hydrox/Mg Hydrox/Simethicone (Aluminum/Magnesium Susp 30 Ml Udc) 30 ml PO Q6H PRN PRN Reason: Dyspepsia Stop: 04/06/24 14:18 Alprazolam (Alprazolam 0.5 Mg Tablet) 1 mg PO TID PRN PRN Reason: Anxiety Stop: 04/06/24 14:18 Last Admin: 03/09/24 05:46 Dose: 1 mg Atorvastatin Calcium (Atorvastatin 40 Mg Tab) 40 mg PO QPM ARIN Stop: 04/06/24 20:59 Last Admin: 03/08/24 19:48 Dose: 40 mg Bisacodyl (Bisacodyl 10 Mg Supp) 10 mg IL DAILY PRN PRN Reason: Constipation Stop: 04/06/24 14:18 Diphenhydramine HCl (Diphenhydramine Capsule 25 Mg Cap) 25 mg PO Q6H PRN PRN Reason: Allergic Rhinitis/Insomnia Stop: 04/06/24 14:18 Famotidine (Famotidine 20 Mg Tab) 20 mg PO Q12H PRN PRN Reason: Dyspepsia Stop: 04/06/24 14:18 Fenofibrate (Fenofibrate Nanocrystallized 145 Mg Tablet) 145 mg PO PM ARIN Stop: 04/06/24 20:59 Last Admin: 03/08/24 19:47 Dose: 145 mg Ferrous Sulfate (Ferrous Sulfate 325 Mg Tab) 325 mg PO BIDM ARIN Stop: 04/08/24 07:59 Last Admin: 03/09/24 08:31 Dose: 325 mg Hydromorphone HCl (Hydromorphone Inj 0.5 Mg/0.5 Ml Syr) 0.5 mg IV Q3H PRN PRN Reason: MODERATE Pain (Scale 4,5,6) & Pre PT Stop: 03/21/24 14:18 Last Admin: 03/08/24 19:48 Dose: 0.5 mg Hydromorphone HCl (Hydromorphone Inj 1 Mg/Ml Syringe) 1 mg IV Q3H PRN PRN Reason: SEVERE Pain (Scale 7,8,9,10) Stop: 03/21/24 14:18 Last Admin: 03/08/24 13:44 Dose: 1 mg Hydroxyzine HCl (Hydroxyzine Hcl 25 Mg Tab) 25 mg PO Q8H PRN PRN Reason: Anxiety Stop: 04/06/24 14:18 Promethazine HCl (Phenergan) 12.5 mg in 50.5 mls @ 202 mls/hr IV Q6H PRN PRN Reason: Nausea And Vomiting Stop: 04/06/24 14:18 Influenza Virus Vaccine Quadrival (Do Not Administer Flu Vaccine) 1 each N/A PRN PRN PRN Reason: Notification Stop: 04/06/24 14:18 Lorazepam (Lorazepam 2 Mg/1 Ml Vial) 0.5 mg IV Q8H PRN PRN Reason: Sedation/Anxiety Stop: 04/06/24 14:18 Magnesium Hydroxide (Magnesium Hydroxide Susp 30 Ml Udc) 30 ml PO Q24H PRN PRN Reason: Constipation Stop: 04/06/24 14:18 Menthol (Cough Drop (Sugar Free) Mick 24 Mick/1 Box) 1 mick BUCCAL PRN PRN PRN Reason: Sore Throat Stop: 04/07/24 17:53 Metoclopramide HCl (Metoclopramide Hcl Inj 5 Mg/Ml 2 Ml Vial) 10 mg IV Q6H PRN PRN Reason: Nausea &/or Vomiting Stop: 04/06/24 14:18 Naloxone HCl (Naloxone Hcl 0.4 Mg/1 Ml Vial/Carp) 0.1 mg IV Q5M PRN PRN Reason: Oversedation/Resp depression Stop: 04/06/24 14:18 Ondansetron HCl (Ondansetron Inj 2 Mg/Ml 2 Ml Vial) 4 mg IV Q6H PRN PRN Reason: Nausea &/or Vomiting Stop: 04/06/24 14:18 Ondansetron HCl (Ondansetron 4 Mg Od Tab) 4 mg PO Q6H PRN PRN Reason: Nausea Stop: 04/06/24 14:18 Oxycodone HCl (Oxycodone Hcl Ir 5 Mg Tab (Immediate Release)) 5 - 10 mg PO Q4H PRN PRN Reason: Pain & Pre PT Stop: 03/21/24 14:18 Last Admin: 03/09/24 10:37 Dose: 10 mg Pneumococcal Polyvalent Vaccine (Do Not Administer Pneumococcal Vaccine) 1 each N/A PRN PRN PRN Reason: Notification Stop: 04/06/24 14:18 Polyethylene Glycol (Polyethylene (Miralax) 17 Gm Pack) 17 gm PO Q6 ARIN Stop: 04/07/24 05:59 Last Admin: 03/09/24 05:34 Dose: 17 gm Pregabalin (Pregabalin 100 Mg Cap) 200 mg PO BID ARIN Stop: 04/06/24 20:59 Last Admin: 03/09/24 08:28 Dose: 200 mg Senna/Docusate Sodium (Docusate Sodium/Senna 50/8.6mg Tab) 2 tab PO BID PRN PRN Reason: Constipation Stop: 04/06/24 14:18 Last Admin: 03/09/24 05:40 Dose: 2 tab Senna/Docusate Sodium (Docusate Sodium/Senna 50/8.6mg Tab) 2 tab PO HS ARIN Stop: 04/06/24 20:59 Last Admin: 03/08/24 19:48 Dose: 2 tab Sodium Biphosphate/Sodium Phosphate (Sod Phosphate/Sod Biphosphate Enema 132 Ml Btl) 132 ml IL ONE PRN PRN Reason: Constipation Stop: 04/06/24 14:18 Tramadol HCl (Tramadol Hcl 50 Mg Tablet) 50 - 100 mg PO Q4H PRN PRN Reason: Moderate-Severe pain & Pre PT Stop: 04/06/24 14:18 Trazodone HCl (Trazodone Hcl 100 Mg Tab) 200 mg PO HS ARIN Stop: 04/06/24 20:59 Last Admin: 03/08/24 19:47 Dose: 200 mg Venlafaxine HCl (Venlafaxine Hcl Xr 75 Mg Capxr) 75 mg PO QAM ARIN Stop: 04/07/24 08:59 Last Admin: 03/09/24 08:28 Dose: 75 mg Venlafaxine HCl (Venlafaxine Hcl Xr 150 Mg Capxr) 150 mg PO QAM ARIN Stop: 04/07/24 08:59 Last Admin: 03/09/24 08:28 Dose: 150 mg Vitamin D (Cholecalciferol 125 Mcg (5,000 Units) Tab) 125 mcg PO DAILY ARIN Stop: 04/07/24 08:59 Last Admin: 03/09/24 08:28 Dose: 125 mcg
--- NOTE | 2024-03-09 14:40 | Orthopedic Progress Note ---
Date of Service March 09, 2024 Assessment & Plan (1) Lumbar disc herniation with radiculopathy: Plan: At this time continue physical therapy monitor her ADDI output anticipate possible discharge home tomorrow with home health. Admission and Anticipated Discharge Date Admission Date: March 07, 2024 Subjective Back pain controlled leg pain improved Physical Exam Physical Exam: Patient is currently in bed. Is constricted testing. Results & Data Vital Signs (Past 12 Hours) Vital Signs Temp Pulse Resp BP Pulse Ox O2 Del Method 03/09/24 07:47 36.8 C 70 18 115/73 94 Room Air
--- NOTE | 2024-03-10 08:40 | Discharge Summary ---
Date of Service March 10, 2024 Admission HPI Per Admitting Provider This is a 63-year-old female presents with recurrent disc herniation continued right leg pain. Subsequently she is here for revision surgery. Principal Diagnosis Recurrent disc herniation L5-S1 Discharge Data Allergies Allergy/AdvReac Type Severity Reaction Status Date / Time prednisone Allergy Severe extreme Verified 03/07/24 08:39 hyperactivity Consultations 03/07/24 14:19 Consult Hospitalist Routine Procedures Performed Operation Date: 03/07/24 10:05 Actual Procedures p L5-S1 Revision Decompression and Fusion, Spinal Cord Monitoring(Not Applicable) - Evangelista Whitney DO Ordered Studies 03/07/24 [place] lumbar spine 2-3V Routine Hospital Course (1) Lumbar disc herniation with radiculopathy: Patient underwent revision decompression fusion tolerated as well as taken orthopedic for postoperative postop patient progressed appropriately. ADDI drain decreasing well. Pain improving. Tolerating physical therapy. Subsidy discharged home. Discharge orders instructions found in chart for further review. Total Time Total Time Spent Total Time Spent (In Minutes): 20 minutes Discharge Plan Discharge Items Patient Disposition: Home - Home Health Services Reason For Visit: Recurrent Herniation of Lumbar Disc Discharge Diagnosis: Recurrent lumbar disc herniation L5-S1 Activity: As commented below Non-emergency contact: Primary Care Provider Call non-emergency contact if: you have any medication questions Follow-up/Referrals: Isabel Alfred CRNP [Primary Care Provider] - Diet: Regular Addtl Attending Provider Instructions: ACTIVITY RECOMMENDATIONS: SELF CARE INSTRUCTIONS AFTER THORACIC/LUMBAR FUSIONS 1. You may walk to your tolerance. It is good exercise for your legs and back. Expect some back and intermittent leg aches and pains. 2. You may perform "counter-top" level activities (make a sandwich, karma with a project, etc.). 3. No bending or lifting of more than 10 pounds or back twisting of any nature (roll like a log when turning in bed). 4. You may ride in a car for 20-30 minutes at a time. No driving until after your first visit with your doctor. 5. Frequent changes of position and restricting sitting to 30 minutes at a time will help limit the amount of back spasms and stiffness you may experience. 6. You may discontinue the use of ambulatory aids (cane, crutches, etc.) once your strength and confidence allow. 7. You may computer installation engineer the shower and let water strike your incision when you arrive home at least once daily. Do not take a tub bath, sit in a hot tub or go into a swimming pool until after your first recheck in the office. SPECIAL CARE INSTRUCTIONS: VERY IMPORTANT TO READ AND REVIEW A. Your surgical incision has been closed with a cosmetic suture under the skin that will dissolve in about 6 weeks. In 14 days, you can use a pair of clean scissors and cut the suture that is left outside of the skin at the ends of your incision. 1. The small skin tapes can be removed 7 days after surgery if they have not fallen off by that point. 2. You may keep the wound open to air as much as possible to promote healing after post-op day number 5 unless told otherwise by your doctor. 3. If you think the wound looks like it is becoming infected (redness or worsening drainage) and/or you are experiencing fever, chill or worsening back pain and muscle spasms, contact the office so that we may evaluate you as soon as possible. B. Complications are uncommon, but please contact us if you have any signs or symptoms of: 1. wound infection (fever higher than 102.5 degrees F, redness, separation of wound, drainage, or increasing pain from the incision) 2. blood clots in legs (pain, swelling, redness and warmth in legs) 3. urinary tract infection (fever higher than 102.5 degrees F, burning upon urination or increased frequency of urination) 4. nerve problems (inability to walk on your toes or heels, numbness, loss of bowel or bladder control) 5. any other symptoms that concern you C. Please call the office at if you have any concerns or questions about your operation or recovery. D. No smoking! Smoking drastically decreases the chance of a solid fusion. E. Do not take any anti-inflammatory medications (Indocin, Advil, Motrin, Aspirin, Naprosyn, etc.) as these may inhibit the chance of a solid fusion. Tylenol is okay to take for pain. MANAGING PAIN AFTER SPINAL SURGERY 1. Narcotic medication is intended for short-term use and will be provided for surgical pain. Surgical pain usually lasts for a period of 4-6 weeks. Narcotic medication includes Percocet, Vicodin, Darvocet, Tylenol #3 or Lortab. 2. Longer-term pain is more appropriately treated with non-narcotic medication such as Tylenol ES. 3. Muscle spasm is not appropriately treated with narcotics. Muscle relaxers such as Soma, Flexeril or Skelaxin can be used along with Tylenol ES. 4. Remember that we all live with some "aches and pains". This is not unusual or uncommon after an injury or as we get older. a. Back pain is expected and may include muscle spasms for 4 to 6 weeks after surgery. The pain should gradually improve. If the pain worsens for no apparent reason, please contact the office. b. Intermittent leg pain may also be experienced and should not be concerned about unless it worsens for no apparent reason. If so, please contact the office. 5. We will provide appropriate medication within the normal guidelines of their prescribed use. We will also be very cautious and aware of potential abuse and extended duration of patients' medication needs. a. Pain medications are for your comfort and to assist with sleep and rest so that the tissue can heal. They are not provided in order to return to normal activity and should not be used through the day. To do so or worsening pain at night can result from ongoing tissue damage and development of tolerance to the prescribed medicine. 6. Please allow 2-3 days to process refills. Prescriptions will not be mailed but must be picked up at the office. FOLLOW UP VISIT: Keep your scheduled follow-up appointment. Any questions, please call the office at . Pending Studies at Discharge: No Stand-Alone Forms: My [facility], Smoking Cessation Medications and DC Order Prescriptions: New tramadol 50 mg tablet 50 mg PO Q6H PRN (Reason: pain, moderate) Qty: 30 0RF oxycodone 5 mg tablet 5 mg PO Q6H PRN (Reason: pain) Qty: 30 0RF ferrous sulfate 325 mg (65 mg iron) Tablet,Delayed Release (Dr/Ec) 325 mg PO BIDM Qty: 60 3RF Continued venlafaxine [Effexor XR] 75 mg Capsule,Extended Release 24hr 75 mg PO QAM venlafaxine [Effexor XR] 150 mg Capsule,Extended Release 24hr 150 mg PO QAM trazodone 100 mg Tablet 200 mg PO HS baclofen 10 mg Tablet 10 mg PO TID PRN (Reason: Pain) pregabalin [Lyrica] 200 mg Capsule 200 mg PO BID fenofibrate nanocrystallized 145 mg Tablet 145 mg PO PM alprazolam 1 mg Tablet 1 mg PO TID PRN (Reason: Anxiety) tramadol 50 mg tablet 50 mg PO Q6H PRN (Reason: pain, moderate) Qty: 20 0RF oxycodone 5 mg tablet 5 mg PO Q6H PRN (Reason: pain) Qty: 20 0RF atorvastatin [Lipitor] 40 mg Tablet 40 mg PO QPM cholecalciferol (vitamin D3) [Vitamin D3] 125 mcg (5,000 unit) Tablet 125 mcg PO DAILY sennosides-docusate sodium [Senna Laxative-Stool Softener] 8.6-50 mg Tablet 2 tab PO BID PRN (Reason: Constipation) Discontinued ibuprofen 800 mg Tablet 800 mg PO Q8H Discharge Orders: Discharge Order (Routine); Ordered 03/10/24 Ordered By: Evangelista Whitney Admission Data Admit Date/Time: 03/07/24 11:59 Attending Provider: Evangelista Whitney Admit Provider: Evangelista Whitney Primary Care Provider: Isabel Alfred Other Providers: Pratibha Mckeon; [facility]; Castro Chavez
--- NOTE | 2024-03-10 11:49 | Hospitalist Progress Note ---
Date of Service March 10, 2024 Assessment & Plan (1) Lumbar disc herniation with radiculopathy: (2) S/P lumbar spine operation: (3) Acute blood loss as cause of postoperative anemia: Plan Yasemin Cisneros is a 63y/o F with PMHx significant for fibromyalgia, COLE intolerant to CPAP, HLD, anxiety, neuropathy and LBBB who was referred to our [facility] Team for post-operative medical management after undergoing L5-S1 decompression and fusion revision performed by Dr. Whitney on 03/07/24. Lumbar Disc Herniation with Radiculopathy S/P Lumbar Spine Operation: POD #3 s/p L5-S1 decompression and fusion revision with Dr. Whitney. EBL: 100mL & Pre-Op Hgb: 11.2 [01/28/24] Per ortho for pain control, wound care, anticoagulation and activities. Continue incentive spirometry, PT/OT when appropriate as per ortho team. Monitor H/H for acute blood loss anemia and transfuse blood products PRN. Post-Operative Acute Blood Loss Anemia: Likely dilutional components as well. Pre-op Hgb as per above, Hgb was 9.1 yesterday. Other Chronic Medical Conditions: HLD, anxiety, neuropathy --> Can continue home meds for these specific conditions. DVT Prophylaxis: SCDs/TEDs per primary care team. Code Status: FULL CODE PCP: ALEX Pizarro Disposition: Admitted in Med/Surg - discharge planning as per primary service. Patient expected to be discharged home today with [facility] services. Thank you for this consultation. You can reach a member of the [facility] Team 29/12 via [employer]. Patient seen in collaboration with Dr. Chavez. Please see addendum. I spent a total of 30 minutes coordinating, documenting, and providing care for this patient excluding time spent in the performance of separately billed services. This included personally reviewing all current laboratories and imaging studies, medical reconciliation, outpatient chart review and discussion with specialists. This chart was completed in part utilizing Speech Voice Recognition Software. Grammatical errors, random word insertions, pronoun errors, and incomplete sentences are an occasional consequence of this system due to software limitations, ambient noise, and hardware issues. Any formal questions or concerns about the content, text, or information contained within the body of this dictation should be directly addressed to the provider for clarification. Admission and Anticipated Discharge Date Admission Date: March 07, 2024 Supervising Physician Co-Signing Physician Notes Pt is s/p L5-S1 decompression and fusion revision with Dr. Whitney. Stable per d/w ALICIA. Pt seen personally, Has no complaints, reports improvement in her radicular signs and symptoms, reports pain under control. Agree with the assessment and plan as per TYREE. Total time spent: 10 minutes. I have seen and examined the patient and have discussed the case with the provider above. I agree with the assessment and plan as stated.. Subjective Patient with some soreness in her back this morning but has been up and ambulating. Did not sleep very well last night. She is ready to go home today. Will utilize her walker at home. Mentions that she is going to be discharged home today with [facility] services who will see her for nursing care and PT/OT services. Review of Systems Review of Systems: At least ten systems reviewed and negative, except as noted in the subjective section. Physical Exam Physical Exam: General: WD/WN, vitals as above, NAD, sitting up in bed, pleasant, conversing appropriately. A+Ox3, euthymic affect. HEENT: Normocephalic, atraumatic. PERRL, conjunctivae normal, anicteric sclerae. External ear and nose normal, oropharynx normal. Respiratory: Normal respiratory effort, lungs clear to auscultation, no wheeze, rales, rhonchi. No accessory muscle use. Cardiovascular: Regular rate, rhythm, no murmur, normal peripheral pulses, no BLE edema. Vessels: No JVD. Abdomen/GI: Normal bowel sounds, soft, nontender, no hepatosplenomegaly. Extremities/Musculoskeletal: Extremities motor strength intact, moves all extre mities, surgical bandaging intact. Neurologic: EOMI, no focal deficits, CN's II-XI not formally tested but appear grossly intact bilaterally. Skin: No rashes, normal color, warm/dry. ADDI drain x 1 intact and draining serosanguineous fluid output. Results & Data Results & Data Vital Signs (Past 12 Hours) Vital Signs Temp Pulse Resp BP Pulse Ox O2 Del Method 03/10/24 07:19 36.5 C 71 18 89/60 L 91 Room Air 03/10/24 03:22 79 97/56 L
== END 2024-03-10 16:15 | disposition home or self-care (01) | DRG 454 ==
LOC: ASU 08:09 → 3N 11:59 → 3W 03-10 09:45